=== PATIENT | female | born 1965 | race American Indian/Alaskan Native ===

== ENCOUNTER 2016-09-29 11:13 | Emergency (ER) | payer SELFPAY ==
--- NOTE | 2016-09-29 11:43 | Emergency Department Report ---
Entered by LINDSEY SYLVESTER, acting as scribe for WILY CHASE NP. Chief Complaint: Dental/Oral Stated Complaint: TOOTHACHE/RT SIDE PAIN Time Seen by Provider: 09/29/16 11:33 - HPI History of Present Illness: 51 y/o female presents with right sided toothace that started 4 days ago. Sx include lightheadedness and DUQUE, but pt akhil SOB or chest pain. She notes taking hydrochlorothiazide but hasn't taken it in 3 weeks. off bp meds norvasc and hctz duque does not know doses [facility] is [facility] no pcp no cp no sob NAD VSS MAEW no focal or neuro deficit - ROS Review of Systems: as noted - Exam Vital Signs: Vital Signs 09/29/16 11:26 Temperature 97.8 F Pulse Rate 80 Respiratory 20 Rate Blood Pressure 189/121 O2 Sat by Pulse 100 Oximetry Physical Exam: as noted MSE screening note: Focused history and physical exam performed. Due to findings the following was ordered: ED Disposition for MSE Condition: Stable This documentation as recorded by the scribe,LINDSEY SYLVESTER,accurately reflects the service I personally performed and the decisions made by ,WILY CHASE NP.
[2016-09-29 12:28] LABS: Anion Gap 16 mmol/L; Blood Urea Nitrogen 9 mg/dL (7-17); Calcium 9.3 mg/dL (8.4-10.2); Carbon Dioxide 26 mmol/L (22-30); Chloride 103.4 mmol/L (98-107); Glucose 108 mg/dL (65-100); Potassium 3.6 mmol/L (3.6-5.0); Sodium 142 mmol/L (137-145)
[2016-09-29 12:29] LABS: Basophils % (Auto) 0.5 % (0.0-1.8); Eosinophils % (Auto) 3.1 % (0.0-4.3); Hematocrit 37.9 % (30.3-42.9); Hemoglobin 11.8 gm/dl (10.1-14.3); Mean Corpuscular HGB Conc 31 % (30-34); Mean Corpuscular Volume 83 fl (79-97); Platelet Count 247 K/mm3 (140-440); Red Blood Count 4.55 M/mm3 (3.65-5.03); Red Cell Distribution Width 13.6 % (13.2-15.2); White Blood Count 7.4 K/mm3 (4.5-11.0)
[2016-09-29 12:31] LABS: Mean Corpuscular Hemoglobin 26 pg (28-32)
[2016-09-29 21:12] LABS: Bacteria,Urine 1+ /HPF (Negative); Bilirubin,Urine NEG (Negative); Blood,Urine SM (Negative); Ketones,Urine NEG (Negative); Leukocyte Esterase,Urine NEG (Negative); Mucus,Urine FEW /HPF; Nitrite,Urine NEG (Negative); Protein,Urine <15 mg/dL mg/dL (Negative); Urobilinogen,Urine < 2.0 mg/dL (<2.0); WBC,Urine < 1.0 /HPF (0.0-6.0)
--- NOTE | 2016-09-29 21:33 | Emergency Department Report ---
HPI - General Chief Complaint: Dental/Oral Time Seen by Provider: 09/29/16 20:48 - HPI HPI: The patient is a 51-year-old female who presents for evaluation of tooth pain, chest pain, and abdominal pain. The patient reports 2 days of right lower incisor to pain, 8/10 in severity, throbbing in quality, exacerbated with chewing. She also complains of one week of right-sided chest pain, aching in quality, moderate in severity, exacerbated with movement, and right lower quadrant abdominal pain, sharp in quality, 7/10 in severity, also exacerbated with movement. The patient denies fever, chills, night sweats, trauma to the chest or abdomen, cough, dyspnea, syncope, hemoptysis, diarrhea, blood in the stool, dark tarry stool, dysuria, hematuria, flank pain, genital discharge, inability to pass flatus. ED Past Medical Hx - Past Medical History Previous Medical History?: Yes Hx Hypertension: Yes Hx of Cancer: Yes (right mastectomy) Additional medical history: right leg injury - Surgical History Past Surgical History?: Yes Additional Surgical History: Right mastectomy - Social History Smoking Status: Never Smoker Substance Use Type: Alcohol, Prescribed - Medications Home Medications: Home Medications Medication Instructions Recorded Confirmed Last Taken Type Benzonatate [Tessalon Perles] 100 mg PO Q8HR #14 capsule 04/06/16 Unknown Rx amLODIPine [Norvasc] 5 mg PO DAILY #30 tablet 05/20/16 Unknown Rx diphenhydrAMINE [Benadryl CAP] 25 mg PO Q8HR PRN #20 capsule 05/20/16 Unknown Rx predniSONE [Deltasone] 20 mg PO QDAY #5 tab 05/20/16 Unknown Rx Acetaminophen/Codeine [Tylenol #3] 1 tab PO Q6H PRN #10 tab 09/29/16 Unknown Rx Chlorhexidine Mouthwash [Peridex] 15 ml MM BID #1 bottle 09/29/16 Unknown Rx Penicillin Vk [Veetids TAB] 250 mg PO QID #20 tablet 09/29/16 Unknown Rx ED Review of Systems ROS: Stated complaint: TOOTHACHE/RT SIDE PAIN Other details as noted in HPI Constitutional: denies: fever ENT: reports tooth pain denies: throat or neck pain Respiratory: denies: cough, shortness of breath Cardiovascular: reports chest pain Endocrine: denies unexplained weight loss or gain Gastrointestinal: reports abdominal pain, nausea Genitourinary: denies: dysuria Musculoskeletal: denies: leg swelling Skin: denies: rash Neurological: denies: headache Hematological/Lymphatic: denies: easy bleeding or easy bruising Psych: denies sadness or hopelessness Physical Exam - Physical Exam Vital Signs: Vital Signs 09/29/16 09/29/16 11:26 20:45 Temperature 97.8 F Pulse Rate 80 75 Respiratory 20 20 Rate Blood Pressure 189/121 Blood Pressure 164/94 [Left] O2 Sat by Pulse 100 Oximetry Physical Exam: General: well-nourished, well-developed, no acute distress Head: Normocephalic, atraumatic Eyes: normal sclera ENT: Mucous membranes are pink and moist, multiple dental caries present, no dental abscess Neck: trachea midline, neck supple, No neck stiffness, no cervical adenopathy Respiratory: Breath sounds equal bilaterally, no wheezing, rales, or rhonchi Cardio: S1 and S2 present, no murmurs, rubs, gallops, capillary refill is brisk Abdomen: Normoactive bowel sounds, soft abdomen, RLQ tenderness present, no rigidity, no guarding or rebound tenderness Musc: No pitting edema Skin: No rash Neuro: no facial drooping, normal speech Psych: Normal affect ED Course Vital Signs 09/29/16 09/29/16 11:26 20:45 Temperature 97.8 F Pulse Rate 80 75 Respiratory 20 20 Rate Blood Pressure 189/121 Blood Pressure 164/94 [Left] O2 Sat by Pulse 100 Oximetry ED Medical Decision Making - Lab Data Result diagrams: 09/29/16 11:46 09/29/16 11:46 - Medical Decision Making The patient was seen and examined by myself. The patient is placed on a court monitor and continuous pulse ox. On initial evaluation, the patient was found to be in no distress. Labs and imaging are obtained. The patient is given a total of [place] for her pain and penicillin VK for dental infection. EKG is unremarkable. Lab results were non-concerning including levels of troponin, WBC, hemoglobin, hematocrit, electrolytes, renal function. The patient was reevaluated and reported that their symptoms were markedly improved. The patient is stable for discharge with outpatient follow-up. The patient is given follow-up and return instructions. The patient expressed understanding and agreed with the plan. The patient is discharged in stable condition. Critical care attestation.: If time is entered above; I have spent that time in minutes in the direct care of this critically ill patient, excluding procedure time. ED Disposition Clinical Impression: Tooth pain, Chest pain in adult, Acute abdominal pain in right lower quadrant, Dental caries Disposition: DISCHARGED TO HOME OR SELFCARE Is pt being admited?: No Does the pt Need Aspirin: No Condition: Stable Instructions: Chest Pain (ED), Toothache (ED), Dental Caries (ED) Prescriptions: Acetaminophen/Codeine [Tylenol #3] 1 tab PO Q6H PRN #10 tab PRN Reason: Pain Chlorhexidine Mouthwash [Peridex] 15 ml MM BID #1 bottle Penicillin Vk [Veetids TAB] 250 mg PO QID #20 tablet Referrals: PRIMARY CARE, [Primary Care Provider] - 3-5 Days Time of Disposition: 21:33
[2016-09-29] MEDS ORDERED: NORCO 5/325 PO ONE (23:14)
[2016-09-29] MEDS ORDERED: VEETIDS PO ONE (23:22)
[2016-09-29 23:48] VITALS: BP 158/87
== END 2016-09-29 23:55 | disposition home or self-care (01) ==
LOC: ED 11:13
DX: K02.9 Dental caries, unspecified (principal); R07.9 Chest pain, unspecified; R10.31 Right lower quadrant pain; I10 Essential (primary) hypertension; Z85.3 Personal history of malignant neoplasm of breast
CPT/HCPCS: 36415; 80048; 81001; 84484; 85025; 93005; 93010